=== PATIENT | female | born 1970 | race Two or more races ===

== ENCOUNTER 2018-02-01 15:56 | Emergency (ER) | payer OTHER ==
[~2018-02-01] VITALS: Ht 165.1 cm; Wt 74.8 kg
[2018-02-01] MEDS ORDERED: SYNTHROID125 MCG (17:09)
== END 2018-02-01 20:46 | disposition home or self-care (01) ==
LOC: ER 15:56
DX: S16.1XXA Strain of muscle, fascia and tendon at neck level, initial encounter (principal); V49.9XXA Car occupant (driver) (passenger) injured in unspecified traffic accident, initial encounter; Y93.89 Activity, other specified; Y92.89 Other specified places as the place of occurrence of the external cause; Y99.8 Other external cause status; M62.830 Muscle spasm of back

== ENCOUNTER 2023-12-16 05:30 | Day surgery (SDC) | payer OTHER ==
[2023-12-11 09:56] VITALS: BP 140/83
[~2023-12-16] VITALS: Ht 160 cm; Wt 76.2 kg
[~2023-12-16 05:30] MED LIST: SYNTHROID125 MCG PO
[2023-12-16] MEDS ORDERED: ONDANSETRON HCL 2 MG/ML VIAL IV ONE (08:15)
[2023-12-16] MEDS ORDERED: MORPHINE SULFATE 4 MG/ML VIAL IV ONE ×2 (10:40→11:10)
== END 2023-12-16 12:00 | disposition home or self-care (01) ==
LOC: CIR.AMB 05:30
PROVIDERS: ATTEND Obstetrics & Gynecology
DX: N84.1 Polyp of cervix uteri (principal); N72 Inflammatory disease of cervix uteri; N93.8 Other specified abnormal uterine and vaginal bleeding; N84.0 Polyp of corpus uteri